=== PATIENT | female | born 1955 | race Caucasian/White ===

== ENCOUNTER 2017-06-09 16:25 | Emergency (ER) | payer MEDICARE, OTHER ==
[~2017-06-09] VITALS: Ht 170.2 cm; Wt 108.4 kg
[~2017-06-09 16:25] MED LIST: ALBU18HF IH; ALBU8.5H6 IH; ALEN70TA3 PO; ALPR0.5T PO; AMLO5TAB4 PO; ASPI-482 PO; AZAT50TA PO; CETI10CA PO; CITA10TA8 PO; CLON0.1T12 PO; DOCU-109 PO; FLUT100P MC; GABA-586 PO; IPRA0.2S5 IH; LEVO125T PO; MELA1TAB6 PO; OXYC10TA45 PO; ROPI0.5T2 PO; TIOT18CA IH; lortab
[2017-06-09 16:43] VITALS: BP 127/73
[2017-06-09 17:28] LABS: BASO % 0 % (0-3); EOS % 1 % (0-3); HEMATOCRIT 38.9 % (36.0-47.0); HEMOGLOBIN 13.2 g/dL (12.0-15.5); LYMPH % 15 % (24-48); MEAN CORPUSCULAR HEMOGLOBIN 33 pg (25-35); MEAN CORPUSCULAR HGB CONC 34 g/dL (31-37); MEAN CORPUSCULAR VOLUME 96 fL (79-100); MONO # 0.5 x10^3/uL (0.0-1.1); MONO % 7 % (0-9); NEUT # 5.3 x10^3uL (1.8-7.7); NEUT % 77 % (31-73); PLATELET COUNT 216 x10^3/uL (140-400); RED BLOOD COUNT 4.04 x10^6/uL (3.50-5.40); RED CELL DISTRIBUTION WIDTH 14.5 % (11.5-14.5); WHITE BLOOD COUNT 6.9 x10^3/uL (4.0-11.0)
--- NOTE | 2017-06-09 17:33 | PHYS DOC ---
Past History Past Medical History: Bronchitis, COPD, Hypertension Past Surgical History: Other Smoking: Greater than 1 pack/day Alcohol Use: None Drug Use: None Adult General Chief Complaint Chief Complaint: SHORTNESS OF BREATH HPI HPI Patient is a 62 year old F who presents with Chest pressure over the past 3- 4days. She states that her pain is sharp and localized over the left chest. Pain is intermittent and came on gradually. She does not feel that her pain is associated with any other symptoms. She has no exacerbating or alleviating factors that she knows of. She was seen in the clinic today and was sent to the ED to be evaluated for an emergency medical condition. She is on oxygen at baseline and there was also concern that she may run out of oxygen. Review of Systems Review of Systems Constitutional: Denies fever or chills [] Eyes: Denies change in visual acuity, redness, or eye pain [] HENT: Denies nasal congestion or sore throat [] Respiratory: Denies cough or shortness of breath [] Cardiovascular: No additional information not addressed in HPI [] GI: Denies abdominal pain, nausea, vomiting, bloody stools or diarrhea [] : Denies dysuria or hematuria [] Musculoskeletal: Denies back pain or joint pain [] Integument: Denies rash or skin lesions [] Neurologic: Denies headache, focal weakness or sensory changes [] Endocrine: Denies polyuria or polydipsia [] All other systems were reviewed and found to be within normal limits, except as documented in this note. Family History Family History No pertinent medical history was reported Current Medications Current Medications Current medications were reviewed Allergies Allergies Allergies Coded Allergies Type Severity Reaction Last Updated Verified No Known Drug Allergies 07/04/13 No Physical Exam Physical Exam Constitutional: Well developed, well nourished, no acute distress, non-toxic appearance. [] HENT: Normocephalic, Eyes: EOMI, conjunctiva normal, no discharge. [] Neck: Normal range of motion, no tenderness, supple, no stridor. [] Cardiovascular:Heart rate regular rhythm, Lungs & Thorax: Moderate rhonchi noted in bilateral bases Abdomen: Bowel sounds normal, soft, no tenderness, no masses, no pulsatile masses. [] Skin: Warm, dry, no erythema, no rash. [] Back: No tenderness, no CVA tenderness. [] Extremities: No tenderness, no cyanosis, no clubbing, ROM intact, no edema. [] Neurologic: Alert and oriented X 3, normal motor function, normal sensory function, no focal deficits noted. [] Psychologic: Affect normal, judgement normal, mood normal. [] Current Patient Data Vital Signs Vital Signs Date Time Temp Pulse Resp B/P (MAP) Pulse Ox O2 Delivery O2 Flow Rate FiO2 06/09/17 16:43 98.2 107 22 96 Nasal Cannula 4.0 EKG EKG [] Radiology/Procedures Radiology/Procedures chest xray Impressions: No acute disease Course & Med Decision Making Course & Med Decision Making Pertinent Labs and Imaging studies reviewed. (See chart for details) Admission was declined at this time Dragon Disclaimer Dragon Disclaimer This electronic medical record was generated, in whole or in part, using a voice recognition dictation system. Departure Departure: Impression: Primary Impression: Chest wall pain Disposition: HOME, SELF-CARE Condition: STABLE Referrals: DORYS LONG MD (PCP) Patient Instructions: Chest Wall Pain Additional Instructions: Ness was seen in the ED for chest wall pain. No emergency medical condition was found on history of physical exam. She did have normal labs and imaging. Her pain was most consistent with musculoskeletal pain. She was advised to follow up with her primary care doctor in the next 2-3 days for further management. MANGO RILEY MD Jun 09, 2017 17:33
[2017-06-09 17:34] LABS: CALCIUM 10.3 mg/dL (8.5-10.1); CREATININE 0.8 mg/dL (0.6-1.0); GFR 72.2; POTASSIUM 3.3 mmol/L (3.5-5.1)
--- NOTE | 2017-06-09 17:37 | EKG ---
[address] [address] Test Date: 2017-06-09 Test Time: 16:38:12 Pat Name: CUATE AGUSTIN Department: Room: Gender: F Patient Services Technician: : 1955 Requested By: MANGO RILEY Order Number: [id number] Reading MD: Measurements Intervals [place] Rate: 93 P: 166 SC: 188 QRS: 52 QRSD: 82 T: 43 QT: 264 QTc: 330 Interpretive Statements SINUS RHYTHM NO SPECIFIC ECG ABNORMALITIES RI6.01 No previous ECG available for comparison
--- NOTE | 2017-06-10 07:57 | RAD ---
EXAM: Chest 2 views. HISTORY: Chest pain, shortness of breath, chronic obstructive pulmonary disease. COMPARISON: 5-16. FINDINGS: Frontal and lateral views of the chest are obtained. Weeks 5 chronic obstructive pulmonary disease There are no confluent infiltrates. There is no pneumothorax or pleural effusion. The heart is not enlarged. There are atherosclerotic calcifications of the aorta. Instrumented cervical fusion is noted. IMPRESSION: 1. Chronic obstructive pulmonary disease. No confluent infiltrates.
== END 2017-06-09 18:27 | disposition home or self-care (01) ==
LOC: ER 16:25
DX: R07.89 Other chest pain (principal); I10 Essential (primary) hypertension; J44.9 Chronic obstructive pulmonary disease, unspecified; Z87.891 Personal history of nicotine dependence
CPT/HCPCS: 36415; 71046; 80048; 85025; 85379; 93005; 99285-25

== ENCOUNTER 2017-07-15 08:38 | Emergency (ER) | payer MEDICARE, OTHER ==
[~2017-07-15] VITALS: Ht 165.1 cm; Wt 111.6 kg
[2017-07-15] MEDS ORDERED: IPRATRPIUM/ALBUTEROL 0.5/2.5MG 3 ML NEBU. ONE (08:51)
[2017-07-15] MEDS ORDERED: NALOXONE 0.4 MG/ML VIAL. IV ONE (09:00)
[2017-07-15] MEDS ORDERED: BUMETANIDE 1 MG/4 ML VIAL. IVP SCH (09:00)
--- NOTE | 2017-07-15 09:04 | RAD ---
Indication: Unresponsive. History of COPD. TECHNIQUE: Portable AP upright chest x-ray COMPARISON: Previous study from 06/09/2017. FINDINGS: Heart is normal in size. Prominent pulmonary vasculature noted with signs of cephalization. There is blunting of the left costophrenic angle. Diffuse reticular opacities are noted. No pneumothorax. Visualized bony thorax within normal limits. IMPRESSION: 1. Findings likely suggests fluid overload state with mild interstitial pulmonary edema. 2. Small left pleural effusion with or without consolidation of the adjacent lung parenchyma which may suggest pneumonia or passive atelectasis. Electronically signed by: Jose Armando Real DO (07/15/2017 9:01 AM) [id number]
--- NOTE | 2017-07-15 09:07 | EKG ---
[address] [address] Test Date: 2017-07-15 Test Time: 09:03:40 Pat Name: CUATE AGUSTIN Department: Room: Gender: F Senior Oracle Database Administrator: EMEKA : 1955 Requested By: MANGO RILEY Order Number: [id number] Reading MD: Measurements Intervals [place] Rate: 112 P: 91 HI: 160 QRS: 80 QRSD: 74 T: 73 QT: 370 QTc: 507 Interpretive Statements SINUS TACHYCARDIA QRS(T) CONTOUR ABNORMALITY CONSISTENT WITH ANTEROSEPTAL INFARCT AGE UNDETERMINED ABNORMAL ECG RI6.01 Compared to ECG 06/09/2017 16:38:12 Myocardial infarct finding now present Sinus rhythm no longer present
[2017-07-15 09:09] LABS: BASO % 0 % (0-3); EOS # 0.1 x10^3/uL (0.0-0.7); EOS % 1 % (0-3); HEMATOCRIT 41.7 % (36.0-47.0); HEMOGLOBIN 13.5 g/dL (12.0-15.5); LYMPH % 8 % (24-48); MEAN CORPUSCULAR HEMOGLOBIN 32 pg (25-35); MEAN CORPUSCULAR HGB CONC 32 g/dL (31-37); MEAN CORPUSCULAR VOLUME 97 fL (79-100); MONO # 1.3 x10^3/uL (0.0-1.1); MONO % 5 % (0-9); NEUT # 21.8 x10^3uL (1.8-7.7); NEUT % 86 % (31-73); PLATELET COUNT 357 x10^3/uL (140-400); RED BLOOD COUNT 4.29 x10^6/uL (3.50-5.40); RED CELL DISTRIBUTION WIDTH 14.7 % (11.5-14.5); WHITE BLOOD COUNT 25.2 x10^3/uL (4.0-11.0)
[2017-07-15] MEDS ORDERED: FUROSEMIDE 40 MG/4 ML VIAL IVP ONE (09:15)
[2017-07-15 09:16] LABS: ALBUMIN 2.8 g/dL (3.4-5.0); ALBUMIN/GLOBULIN RATIO 0.7 (1.0-1.7); CALCIUM 8.4 mg/dL (8.5-10.1); CREATININE 0.9 mg/dL (0.6-1.0); POTASSIUM 4.4 mmol/L (3.5-5.1); TOTAL BILIRUBIN 0.6 mg/dL (0.2-1.0); TOTAL PROTEIN 7.1 g/dL (6.4-8.2)
[2017-07-15 09:19] LABS: BGAS PH 7.09 (7.35-7.45)
[2017-07-15] MEDS ORDERED: cefTRIAXone IV Push 1 GM VIAL. IVP SCH (09:30)
[2017-07-15 09:59] LABS: % BANDS 1 % (0-9); % EOS 1 % (0-5); % LYMPHS 9 % (24-48); % MONOS 4 % (0-10)
[2017-07-15 10:00] LABS: PLT ESTIMATE ADEQUATE (ADEQUATE)
--- NOTE | 2017-07-15 10:08 | PHYS DOC ---
Past History Past Medical History: Bronchitis, COPD, Hypertension Past Surgical History: Other Smoking: Greater than 1 pack/day Alcohol Use: None Drug Use: None Adult General Chief Complaint Chief Complaint: RESP ARREST HPI HPI Patient is a 62 year old F who presents with respiratory failure. Her history was limited due to her current medical condition. Her history was provided by EMS and family. EMS was called by the family after Ness became unresponsive and was noted to have increased work of breathing while in the bathroom. EMS did consider elevation however risks was biting down hard and was able to maintain saturations with bag mask ventilation. She was given Solu-Medrol 125 IM prior to arrival. She did receive several breathing treatments prior to arrival. Her family states that she has been on antibiotics and did receive a dose of Solu- Medrol 4 days ago in her doctor's office. Her states that she has a living will but is a full code Review of Systems Review of Systems Unable to obtain due to current medical condition Family History Family History No pertinent family medical history was reported Current Medications Current Medications Current medications were reviewed Current Medications Medications (Trade) Dose Ordered Sig/Temi Start Time Stop Time Status Last Admin Dose Admin Albuterol/ Ipratropium (Duoneb) 3 ml STK-MED ONCE 07/15/17 08:51 07/15/17 08:52 DC Bumetanide (Bumex) 1 mg [id number] 07/15/17 09:00 07/15/17 09:06 DC Ceftriaxone Sodium 1 gm/ Sodium Chloride 50 ml @ 100 mls/hr 1X ONCE 07/15/17 09:00 07/15/17 09:29 UNV Ceftriaxone Sodium (Rocephin) 1 gm Q24H 07/15/17 09:30 07/15/17 08:51 1 GM Furosemide (Lasix) 40 mg 1X ONCE 07/15/17 09:15 07/15/17 09:17 DC 07/15/17 09:11 40 MG Naloxone HCl (Narcan) 0.4 mg 1X ONCE 07/15/17 09:00 07/15/17 09:02 DC 07/15/17 08:41 0.4 MG Allergies Allergies Allergies Coded Allergies Type Severity Reaction Last Updated Verified No Known Drug Allergies 07/15/17 No Physical Exam Physical Exam Constitutional: Well developed, well nourished, moderate distress noted with moderate increased work of breathing. Ness did turn her head when spoken to. Her eyes were opened and blinking HENT: atraumatic, mild dried blood noted in the left [place], likely from nasal trumpet placement by EMS Eyes: EOMI, conjunctiva normal, no discharge. [] Neck: supple, no stridor. [] Cardiovascular: Heart rate regular rhythm, tachycardic Lungs & Thorax: Severely diminished breath sounds bilaterally with moderate wheezing, significant increased work of breathing with retractions noted. Abdomen: Bowel sounds normal, soft, no tenderness Extremities: Moves all extremities equally Neurologic: Evaluation limited due to medical status. Ness does open her eyes and blink when spoken to Psychologic: Decreased level of consciousness Current Patient Data Vital Signs Vital Signs Date Time Temp Pulse Resp B/P (MAP) Pulse Ox O2 Delivery O2 Flow Rate FiO2 07/15/17 09:25 97.8 105 22 99 NonRebreather Mask 10.0 Lab Results Laboratory Tests Test 07/15/17 08:41 07/15/17 08:45 07/15/17 08:56 Glucose (Fingerstick) 260 mg/dL (70-99) H White Blood Count 25.2 x10^3/uL (4.0-11.0) H Red Blood Count 4.29 x10^6/uL (3.50-5.40) Hemoglobin 13.5 g/dL (12.0-15.5) Hematocrit 41.7 % (36.0-47.0) Mean Corpuscular Volume 97 fL (79-100) Mean Corpuscular Hemoglobin 32 pg (25-35) Mean Corpuscular Hemoglobin Concent 32 g/dL (31-37) Red Cell Distribution Width 14.7 % (11.5-14.5) H Platelet Count 357 x10^3/uL (140-400) Neutrophils (%) (Auto) 86 % (31-73) H Lymphocytes (%) (Auto) 8 % (24-48) L Monocytes (%) (Auto) 5 % (0-9) Eosinophils (%) (Auto) 1 % (0-3) Basophils (%) (Auto) 0 % (0-3) Neutrophils # (Auto) 21.8 x10^3uL (1.8-7.7) H Lymphocytes # (Auto) 2.0 x10^3/uL (1.0-4.8) Monocytes # (Auto) 1.3 x10^3/uL (0.0-1.1) H Eosinophils # (Auto) 0.1 x10^3/uL (0.0-0.7) Basophils # (Auto) 0.0 x10^3/uL (0.0-0.2) Platelet Estimate Pending Sodium Level 138 mmol/L (136-145) Potassium Level 4.4 mmol/L (3.5-5.1) Chloride Level 98 mmol/L (98-107) Carbon Dioxide Level 36 mmol/L (21-32) H Anion Gap 4 (6-14) L Blood Urea Nitrogen 13 mg/dL (7-20) Creatinine 0.9 mg/dL (0.6-1.0) Estimated GFR (Cockcroft-Gault) 63.0 BUN/Creatinine Ratio 14 (6-20) Glucose Level 289 mg/dL (70-99) H Lactic Acid Level 1.0 mmol/L (0.4-2.0) Calcium Level 8.4 mg/dL (8.5-10.1) L Magnesium Level 1.9 mg/dL (1.8-2.4) Total Bilirubin 0.6 mg/dL (0.2-1.0) Aspartate Amino Transferase (AST) 25 U/L (15-37) Alanine Aminotransferase (ALT) 18 U/L (14-59) Alkaline Phosphatase 86 U/L (46-116) Creatine Kinase 51 U/L (26-192) Troponin I Quantitative < 0.017 ng/mL (0-0.055) Total Protein 7.1 g/dL (6.4-8.2) Albumin 2.8 g/dL (3.4-5.0) L Albumin/Globulin Ratio 0.7 (1.0-1.7) L Blood pH 7.09 (7.35-7.45) *L Blood Gas PCO2 111 mmHg (35-45) *H Blood Gas PO2 146 mmHg (80-100) H Blood Gas HCO3 34 mmol/L (22-26) H Arterial Bld O2 Saturation (Calc) 98 % (92-99) FiO2 44 % EKG EKG Sinus tachycardia with no ST segment changes Radiology/Procedures Radiology/Procedures Critical care time greater than 90 minutes [place] was initially assessed. EMS was providing bag mask assistance for ventilation on top of spontaneous respirations with 100% supplemental oxygen. IV access at 2 sites was obtained. Ness was placed on secured entrance monitor and found to be in sinus tachycardia. Labs and blood cultures were drawn. Ness was then started on Rocephin 1 g IV and was given Lasix 40 mg IV. Sal catheter was placed. An ABG was drawn and showed hypoxic hypercarbic respiratory failure with respiratory acidosis. Ness's oxygen was able to be titrated down and she was started on BiPAP at 35% supplemental oxygen. Impressions: Chest x-ray - mild costal phrenic angle blunting with interstitial fluid noted CT head was obtained due to the possibility that she may have hit her head when she fell in the bathroom. She was transferred prior to the report being available. Course & Med Decision Making Course & Med Decision Making Pertinent Labs and Imaging studies reviewed. (See chart for details) Ness's family insisted that she not be intubated unless there were no other alternatives. He was explained that intubation may be indicated due to her mental impairment/medical condition. However she is currently maintaining her oxygen saturations with noninvasive ventilation. Family prefers to continue with noninvasive ventilation versus elevation Dragon Disclaimer Dragon Disclaimer This electronic medical record was generated, in whole or in part, using a voice recognition dictation system. Departure Departure: Impression: Primary Impression: Acute respiratory failure with hypoxia and hypercarbia Additional Impressions: Acute on chronic diastolic CHF (congestive heart failure) COPD (chronic obstructive pulmonary disease) Community acquired pneumonia Disposition: 05 XFER OTHER Condition: GUARDED Referrals: DORYS LONG MD (PCP) Problem Qualifiers MANGO RILEY MD Jul 15, 2017 10:08
[2017-07-15 10:45] LABS: BGAS PH 7.18 (7.35-7.45)
--- NOTE | 2017-07-15 10:56 | RAD ---
Indication: Fall. Unresponsive. TECHNIQUE: CT head without IV contrast COMPARISON: None FINDINGS: No pathologic extra-axial or intra-axial fluid collection. The ventricles and basal cisterns are within normal limits. No acute intracranial bleed. No focal loss of river-white differentiation. Orbits are within normal limits. No calvarial lesions. Visualized paranasal sinuses and mastoid air cells are clear. IMPRESSION: No acute intracranial process. Electronically signed by: Jose Armando Real DO (07/15/2017 10:53 AM) [id number]
[2017-07-15 12:02] LABS: BILIRUBIN,URINE NEG (NEG); CLARITY,URINE CLEAR; COLOR,URINE YELLOW; GLUCOSE,URINE 500 mg/dL (NEG); NITRITE,URINE POS (NEG); UROBILINOGEN,URINE 0.2 mg/dL (0.2 mg/dL)
[2017-07-15 12:03] LABS: BACTERIA,URINE FEW /HPF (0-FEW)
[2017-07-15 12:04] LABS: HYALINE CASTS, URINE FEW /HPF; SQUAMOUS EPITHELIAL CELL,UR FEW /LPF
[2017-07-15 17:15] VITALS: BP 137/87
[2017-07-18 09:45] LABS: % SEGS 85 % (35-66)
== END 2017-07-15 11:15 | disposition short-term general hospital (02) ==
LOC: ER 08:38
DX: J96.02 Acute respiratory failure with hypercapnia (principal); J96.01 Acute respiratory failure with hypoxia; I11.0 Hypertensive heart disease with heart failure; I50.33 Acute on chronic diastolic (congestive) heart failure; J18.9 Pneumonia, unspecified organism; J44.0 Chronic obstructive pulmonary disease with (acute) lower respiratory infection; F17.200 Nicotine dependence, unspecified, uncomplicated
CPT/HCPCS: 36415; 36600; 51702; 70450; 71045; 80053; 81001; 82550; 82803; 82947; 83605; 83735; 84484; 85007; 85025; 87040; 93005; 94640; 94660; 96374; 96375; 99291; 99292; J0696; J1940; J2310; 99285-25

== ENCOUNTER 2017-10-06 17:43 | Emergency (ER) | payer MEDICARE, OTHER ==
[~2017-10-06] VITALS: Ht 162.6 cm; Wt 104.3 kg
--- NOTE | 2017-10-06 18:40 | PHYS DOC ---
Past History Past Medical History: Arthritis, COPD, Other Past Surgical History: Cholecystectomy, Hysterectomy, Other Smoking: Greater than 1 pack/day Alcohol Use: None Drug Use: None Adult General Chief Complaint Chief Complaint: SHORTNESS OF BREATH HPI HPI Patient is a 62 year old female who presents with complaint of shortness of breath. The patient has history of COPD and pulmonary fibrosis. Patient follows with Dr. Geiger of pulmonology at [facility]. The patient states that over the past 2 days she has been having worsening shortness of breath. Patient was brought in by her due to increased drowsiness with her shortness of breath. Patient states she is normally on BiPAP at home during the daytime and patient's baseline O2 sats are 89-90% while on 4 L. Patient states that she is having increased difficulty with breathing but denies any productive cough or fever. Patient also denies any substernal chest pain. Patient has had history of acute on chronic respiratory failure and thus came to the emergency department for initial treatment to help stabilize her condition. Review of Systems Review of Systems Constitutional: Denies fever or chills [] Eyes: Denies change in visual acuity, redness, or eye pain [] HENT: Denies nasal congestion or sore throat [] Respiratory: Shortness of breath, denies cough[] Cardiovascular: Denies chest pain[] GI: Denies abdominal pain, nausea, vomiting, bloody stools or diarrhea [] : Denies dysuria or hematuria [] Musculoskeletal: Denies back pain or joint pain [] Integument: Denies rash or skin lesions [] Neurologic: Denies headache, focal weakness or sensory changes [] All other systems were reviewed and found to be within normal limits, except as documented in this note. Allergies Allergies Allergies Coded Allergies Type Severity Reaction Last Updated Verified No Known Drug Allergies 10/06/17 No Physical Exam Physical Exam Constitutional: Alert, afebrile, appears in moderate to severe respiratory distress. [] HENT: Normocephalic, atraumatic, bilateral external ears normal, oropharynx moist, no oral exudates, nose normal. [] Eyes: PERRLA, EOMI, conjunctiva normal, no discharge. [] Neck: Normal range of motion, no tenderness, supple, no stridor. [] Cardiovascular: Tachycardiac and regular rhythm, no murmur [] Lungs & Thorax: Severely restricted air movement bilaterally, expiratory wheezes bilaterally, no rales[] Abdomen: Bowel sounds normal, soft, no tenderness, no masses, no pulsatile masses. [] Skin: Warm, dry, no erythema, no rash. [] Back: No tenderness, no CVA tenderness. [] Extremities: No tenderness, no cyanosis, no clubbing, ROM intact, no edema. [] Neurologic: Alert and oriented X 3, normal motor function, normal sensory function, no focal deficits noted. [] Current Patient Data Vital Signs Vital Signs Date Time Temp Pulse Resp B/P (MAP) Pulse Ox O2 Delivery O2 Flow Rate FiO2 10/06/17 18:00 99.0 111 22 84 Simple Mask 5.0 Lab Results Laboratory Tests Test 10/06/17 18:18 10/06/17 18:33 White Blood Count 9.8 x10^3/uL Red Blood Count 4.08 x10^6/uL Hemoglobin 12.9 g/dL Hematocrit 38.9 % Mean Corpuscular Volume 95 fL Mean Corpuscular Hemoglobin 32 pg Mean Corpuscular Hemoglobin Concent 33 g/dL Red Cell Distribution Width 15.0 % Platelet Count 210 x10^3/uL Neutrophils (%) (Auto) 89 % Lymphocytes (%) (Auto) 5 % Monocytes (%) (Auto) 5 % Eosinophils (%) (Auto) 0 % Basophils (%) (Auto) 0 % Neutrophils # (Auto) 8.7 x10^3uL Lymphocytes # (Auto) 0.5 x10^3/uL Monocytes # (Auto) 0.5 x10^3/uL Eosinophils # (Auto) 0.0 x10^3/uL Basophils # (Auto) 0.0 x10^3/uL Sodium Level 139 mmol/L Potassium Level 4.0 mmol/L Chloride Level 97 mmol/L Carbon Dioxide Level 39 mmol/L Anion Gap 3 Blood Urea Nitrogen 12 mg/dL Creatinine 0.8 mg/dL Estimated GFR (Cockcroft-Gault) 72.2 BUN/Creatinine Ratio 15 Glucose Level 152 mg/dL Lactic Acid Level 1.3 mmol/L Calcium Level 7.9 mg/dL Total Bilirubin 0.4 mg/dL Aspartate Amino Transf (AST/SGOT) 19 U/L Alanine Aminotransferase (ALT/SGPT) 17 U/L Alkaline Phosphatase 72 U/L Creatine Kinase 100 U/L Creatine Kinase MB (Mass) 0.8 ng/mL Creatine Kinase MB Relative Index 0.8 % BV-Xpn-S-Type Natriuretic Peptide 211 pg/mL Total Protein 7.6 g/dL Albumin 3.3 g/dL Albumin/Globulin Ratio 0.8 Blood Gas pH 7.26 Blood Gas PCO2 94 mmHg Blood Gas PO2 60 mmHg Blood Gas HCO3 42 mmol/L Arterial Bld O2 Saturation (Calc) 84 % FiO2 50 % Current Medications Medications (Trade) Dose Ordered Sig/Temi Route PRN Reason Start Time Stop Time Status Last Admin Dose Admin Methylprednisolone Sodium Succinate (SOLU-Medrol 125MG VIAL) 125 mg 1X ONCE IV 10/06/17 18:45 10/06/17 18:47 DC 10/06/17 18:45 Albuterol Sulfate (Ventolin) 7.5 mg 1X ONCE CONT NEB 10/06/17 18:45 10/06/17 18:47 DC 10/06/17 19:01 EKG EKG Interpreted by me: Heart rate 107, sinus tachycardia, normal intervals, normal axis, no acute ST/T-wave abnormalities present[] Radiology/Procedures Radiology/Procedures One view AP chest x-ray interpreted by me: No infiltrate, no effusions, normal cardiac silhouette[] Course & Med Decision Making Course & Med Decision Making Pertinent Labs and Imaging studies reviewed. (See chart for details) The patient was started on an hour-long breathing treatment in the emergency department. The patient's ABG shows acute on chronic respiratory failure with a CO2 level of 94 and a pH level VII.26. The patient was initiated on BiPAP therapy in the emergency department. Patient is remaining stable on current measures. The patient will need admission to a facility that has on-call pulmonology which is not available at [facility]. For this reason, I contacted [facility] where the patient's scientist currently practices to initiate transfer. I spoke with Dr. Mims who accepted care of patient in hospital. The patient was also treated with 125 mg of Solu-Medrol. Critical care time excluding procedures: 45 minutes Dragjackeline Disclaimer Dragon Disclaimer This electronic medical record was generated, in whole or in part, using a voice recognition dictation system. Departure Departure: Impression: Primary Impression: Acute on chronic respiratory failure Disposition: T-[facility] H[facility] Condition: GUARDED Referrals: DORYS LONG MD (PCP) Problem Qualifiers Primary Impression: Acute on chronic respiratory failure Respiratory failure complication: hypoxia and hypercapnia Qualified Codes: J96.21 - Acute and chronic respiratory failure with hypoxia; J96.22 - Acute and chronic respiratory failure with hypercapnia MANNY QUIROZ MD Oct 06, 2017 18:40
[2017-10-06 18:44] LABS: BGAS PH 7.26 (7.35-7.45)
[2017-10-06] MEDS ORDERED: ALBUTEROL SULFATE 2.5 MG/3 ML NEBU. CONT NEB ONE (18:45)
[2017-10-06] MEDS ORDERED: methylPREDNISolone SOD SUCC PF 125 MG/2 ML VIAL. IV ONE (18:45)
[2017-10-06 19:43] LABS: BASO % 0 % (0-3); EOS % 0 % (0-3); HEMATOCRIT 38.9 % (36.0-47.0); HEMOGLOBIN 12.9 g/dL (12.0-15.5); LYMPH # 0.5 x10^3/uL (1.0-4.8); LYMPH % 5 % (24-48); MEAN CORPUSCULAR HEMOGLOBIN 32 pg (25-35); MEAN CORPUSCULAR HGB CONC 33 g/dL (31-37); MEAN CORPUSCULAR VOLUME 95 fL (79-100); MONO # 0.5 x10^3/uL (0.0-1.1); MONO % 5 % (0-9); NEUT # 8.7 x10^3uL (1.8-7.7); NEUT % 89 % (31-73); PLATELET COUNT 210 x10^3/uL (140-400); RED BLOOD COUNT 4.08 x10^6/uL (3.50-5.40); WHITE BLOOD COUNT 9.8 x10^3/uL (4.0-11.0)
[2017-10-06 19:58] LABS: ALBUMIN 3.3 g/dL (3.4-5.0); ALBUMIN/GLOBULIN RATIO 0.8 (1.0-1.7); CALCIUM 7.9 mg/dL (8.5-10.1); CREATININE 0.8 mg/dL (0.6-1.0); GFR 72.2; TOTAL BILIRUBIN 0.4 mg/dL (0.2-1.0); TOTAL PROTEIN 7.6 g/dL (6.4-8.2)
[2017-10-06 20:10] VITALS: BP 136/72
--- NOTE | 2017-10-07 07:08 | EKG ---
[address] [address] Test Date: 2017-10-06 Test Time: 18:07:03 Pat Name: CUATE AGUSTIN Department: Room: Gender: F Elementary Supervisor: EMEKA : 1955 Requested By: MANNY QUIROZ Order Number: [id number] Reading MD: Jason Freitas MD Measurements Intervals [place] Rate: 107 P: SC: QRS: 67 QRSD: 76 T: 56 QT: 296 QTc: 395 Interpretive Statements SINUS RHYTHM NON-SPECIFIC ST/T CHANGES Electronically Signed On 10-11-2017 13:55:01 CDT by Jason Freitas MD
--- NOTE | 2017-10-07 07:53 | RAD ---
Chest radiograph 10/06/2017 6:53 PM INDICATION: Shortness of breath COMPARISON: July 15, 2017 TECHNIQUE: Portable upright frontal view of the chest is provided. FINDINGS: The cardiomediastinal silhouette is within normal limits. There are no pleural effusions. There is no pulmonary vascular congestion. There is no pneumothorax. The lungs are clear. No significant osseous abnormality is identified. IMPRESSION: No acute cardiopulmonary process. Electronically signed by: Vickie Orr MD (10/07/2017 7:50 AM) [facility]
== END 2017-10-06 21:45 | disposition short-term general hospital (02) ==
LOC: ER 17:43
DX: J96.21 Acute and chronic respiratory failure with hypoxia (principal); J96.22 Acute and chronic respiratory failure with hypercapnia; J44.9 Chronic obstructive pulmonary disease, unspecified; M19.90 Unspecified osteoarthritis, unspecified site; F17.200 Nicotine dependence, unspecified, uncomplicated
CPT/HCPCS: 36415; 36600; 71045; 80053; 82553; 82803; 83605; 83880; 85025; 87040; 93005; 94644; 94660; 96374; 99291; J2930; J7613; 94640